=== PATIENT | male | born 1995 | race Caucasian/White ===

== ENCOUNTER 2020-10-11 15:16 | Emergency (ER) | payer SELFPAY ==
[2020-10-11] VITALS (16 sets, daily range): BP systolic 125–158; BP diastolic 82–104; PULSE 93–123; RESP 10–23; O2SAT 93–99
--- NOTE | ~2020-10-11 | XR_ITS ---
EXAMINATION: XR chest 1V portable DATE: 10/11/2020 16:50 INDICATION: Shortness of breath and bronchitis. TECHNIQUE: frontal view of the chest was obtained. COMPARISON: None FINDINGS: The lungs are clear with no focal airspace opacities, pulmonary edema, pleural effusion or pneumothor ax. The cardiomediastinal silhouette is normal. Visualized bones and soft tissues are unremarkable. IMPRESSION: 1. No acute cardiopulmonary disease. Reviewed, dictated and finalized at location A. END OPERATOR
--- NOTE | ~2020-10-11 | CT_ITS ---
EXAMINATION: CTA chest PE protocol DATE: 10/11/2020 17:06 INDICATION: Shortness of breath. Hypoxia. TECHNIQUE: Computed tomography (CT) pulmonary angiogram of the chest was performed with 100 mL Omnipa que-350 intravenous contrast. Additional 3D reconstructions utilizing coronal maximum intensity proje ction (MIP) were performed. The dose-length product was 703.72 mGy-cm. COMPARISON: None FINDINGS: Excellent contrast opacification of the pulmonary arteries. There is mild streak artifact from dense contrast in the superior vena cava and right atrium. Mild scattered respiratory motion artifact which mildly decreases sensitivity and specificity in some of the smaller subsegmental pulmonary arteries. There appear to be subtle central decreased attenuation in a few of the basilar segmental and subseg mental pulmonary arteries in the left lower lobe which appear more likely related to motion and strea k artifact in pulmonary emboli. No definitive pulmonary emboli identified. Diffuse mild bronchial wal l thickening consistent with bronchitis. No pneumonia, pulmonary edema, pleural effusion or pneumotho rax. Heart size is normal. No pericardial effusion. No pathologically enlarged thoracic lymphadenopat hy. Normal residual thymic tissue in the anterior mediastinum. Mild bilateral gynecomastia. Diffuse h epatic steatosis with focal sparing along the gallbladder fossa. Minimal likely physiologic anterior wedging at L1 and multiple mid and lower thoracic vertebral bodies. IMPRESSION: 1. A couple very subtle regions of decreased central attenuation within a few of the segmental and grant bsegmental pulmonary arteries in the left lower lobe which appear more likely related to combination of streak and motion artifact than pulmonary emboli. No definitive pulmonary emboli identified. 2. Diffuse mild bronchial wall thickening consistent with bronchitis or reactive airway disease/asthm a. 3. Diffuse hepatic steatosis. Reviewed, dictated and finalized at location A. T TEAM CLERK IMPRESSION: 1. A couple very subtle regions of decreased central attenuation within a few o f the segmental and subsegmental pulmonary arteries in the left lower lobe whic h appear more likely related to combination of streak and motion artifact than pulmonary emboli. No definitive pulmonary emboli identified. 2. Diffuse mild bronchial wall thickening consistent with bronchitis or reactiv e airway disease/asthma. 3. Diffuse hepatic steatosis.
--- NOTE | 2020-10-11 15:47 | ECG_ITS ---
Measurements Intervals [place] Rate: 108 P: 59 ME: 123 QRS: 49 QRSD: 92 T: 60 QT: 330 QTc: 443 Interpretive Statements SINUS TACHYCARDIA EARLY PRECORDIAL R/S TRANSITION ST ELEVATION IN ANTEROLAT/INF LEADS- PROBABLY EARRY REPOLARIZATION BASELINE ARTIFACT- I, II, III, AVL ABNORMAL ECG Electronically Signed On 10-11-2020 16:24:54 PIPE INSULATOR by Wesley Adams D.O.
--- NOTE | 2020-10-11 15:50 | ED.SOB ---
HPI - SOB/Dyspnea General Chief Complaint: Shortness of Breath/Dyspnea Stated Complaint: sob Time Seen by Provider: 10/11/20 15:18 Source: patient Mode of arrival: ambulatory Limitations: no limitations History of Present Illness HPI Narrative: This patient is a 24 year old male who presents for evaluation of shortness of breath. Patient reports he developed a cough and shortness of breath 1 month ago. He states at that time he went to an urgent care for evaluation. He was told he had wheezing and he was discharged with amoxicillin, albuterol, prednisone for a diagnosis of bronchitis. He reports he developed a rash immediately after taking the amoxicillin but he continued taking it for 5 days. He returned to Urgent care and they changed his antibiotics. He has not been on antibiotics for 2 weeks. He has been using an albuterol nebulizer for his cough and sob. Today he was at home and he states he developed worsening sob. EMS found patient with oxygen saturation of 88% on room air and he had a rash. Patient was given benadryl by EMS . His rash has now resolved. He denies fever, chest pain, sore throat, tongue swelling. Related Data Home Medications Medication Instructions Recorded Confirmed albuterol 90 mcg INHALATION 10/11/20 Allergies Allergy/AdvReac Type Severity Reaction Status Date / Time amoxicillin Allergy Rash Verified 10/11/20 15:18 Penicillins Allergy Rash Verified 10/11/20 15:18 Review of Systems Review of Systems: All systems reviewed & are unremarkable except as noted in HPI and below Constitutional: Constitutional: Denies chills and Denies fever(s) ENT: Denies dysphagia, Denies nasal congestion and Denies sore throat Cardiovascular: Cardiovascular: Denies chest pain Respiratory: Respiratory: Reports cough, Reports dyspnea and Reports wheezing Gastrointestinal: Gastrointestinal: Denies abdominal pain, Denies diarrhea and Denies nausea Allergic/Immunologic: Allergic/Immunologic: Denies lip swelling and Denies tongue swelling PMFSH Past Medical History Medical History (Updated 10/11/20 @ 18:17 by Yenny Pavon MD) Patient denies medical problems Social History Social History (Updated 10/11/20 @ 15:58 by Yenny Pavon MD) Smoking status: Never smoker Exam Narrative: Exam Narrative: GENERAL: Well-appearing, well-nourished, and in no acute distress. HEAD: Normocephalic, atraumatic EYES: PERRLA and EOMI, conjunctiva clear without discharge EARS: TM's clear bilaterally without erythema or dullness THROAT:Mucous membranes moist, Oropharynx normal without erythema, exudate, peritonsillar swelling or fluctuance NECK: Supple, without lymphadenopathy or mass RESPIRATORY: No respiratory distress, Airway patent, Respirations non-labored, Clear to auscultation without rales, rhonchi or wheeze HEART:tachycardic rate and regular rhythm. No murmur heard. Normal peripheral pulses. ABDOMEN: Soft, nontender, nondistended, normal active bowel sounds. No masses. No rebound or guarding, No organomegaly. EXTREMITIES: No edema, normal strength with full range of motion. SKIN: Warm, dry, normal color without rash NEURO: Alert and oriented x3. CN 2-12 grossly intact. No focal deficits. PSYCH: Normal mood and affect. Course Reevaluation(s) Reevaluation #1: PAtient has had no issues while in ER. His lungs are clear. He is 96% on room air. I discussed ct showing bronchitis. I Discussed discharge plan and treatment. Date: 10/11/20 Time: 17:40 Vital Signs Vital signs: Vital Signs Pulse Rate 123 H 10/11/20 15:08 Respiratory Rate 21 H 10/11/20 15:08 Blood Pressure 140/104 H 10/11/20 15:08 Pulse Oximetry 95 10/11/20 15:08 Pulse Rate 93 10/11/20 18:54 Respiratory Rate 15 10/11/20 18:54 Blood Pressure 158/84 H 10/11/20 18:54 Pulse Oximetry 99 10/11/20 18:54 MDM - SOB/Dyspnea Lab Data Attestation: I reviewed the patient's lab results. Result diagrams:
[2020-10-11 16:06] LABS: Alveolar/Arterial O2 Gradient 37.6 mmHg; Base Excess ABG -1.5 mEq/l (+/-2.0); Device ROOM AIR; Fractional Inspired Oxygen 21 %; HCO3 ABG 22.9 mEq/l (22.0-26.0); Modified Allen's Test Pass; Oxygen Saturation ABG 93.4 % (95.0-100.0); Oxyhemoglobin 92.3 % THb (90.0-100.0); PCO2 ABG 37.8 mmHg (35.0-45.0); PO2 ABG 66.9 mmHg (80.0-100.0); PO2 FiO2 Ratio Arterial Blood 3.19 %; Site Drawn RIGHT RADIAL
[2020-10-11] MEDS: SODIUM CHLORIDE 0.9% IV 1,000 ML 999 ML IV CONT (16:11)
[2020-10-11 16:28] LABS: Basophils Percent Auto 0.4 % (0.2-1.2); Eosinophils Absolute Auto 0.3 K/mm3 (0-0.3); Eosinophils Percent Auto 3.4 % (0-4.4); Hematocrit 48.7 % (42.0-52.0); Immature Granulocyte Absolute 0.03 K/mm3 (0.00-0.031); Immature Granulocyte Percent A 0.3 % (0-0.5); Lymphocytes Absolute Auto 1.15 K/mm3 (0.9-3.2); Lymphocytes Percent Auto 12.1 % (18.3-44.2); Mean Corpuscular HGB Conc 34.9 g/dl (32-36); Mean Corpuscular Hemoglobin 31.5 pg (26-34); Mean Corpuscular Volume 90.2 fl (80-100); Mean Platelet Volume 9.2 fl (7.4-10.4); Monocytes Absolute Auto 0.7 K/mm3 (0.1-0.6); Monocytes Percent Auto 6.9 % (2.6-8.5); Neutrophils Absolute Auto 7.3 K/mm3 (1.3-6.7); Neutrophils Percent Auto 76.9 % (45.5-73.1); Platelet Count Result 260 k/mm3 (150-375); Red Cell Distribution Width 12.8 % (11.5-14.5); White Blood Count 9.5 K/mm3 (4.5-10.0)
[2020-10-11 16:38] LABS: Prothrombin Time 13.5 Seconds (11.1-14.7)
[2020-10-11 16:39] LABS: Partial Thromboplastin Time 22.6 SECONDS (22.3-36.8)
[2020-10-11 16:40] LABS: Alanine Aminotransferase 65 U/L (4-50); Albumin Level 4.5 g/dL (3.5-5.1); Alkaline Phosphatase 67 U/L (38-126); Anion Gap 9 mmol/L (8-16); Aspartate Amino Transferase 39 U/L (17-59); Bilirubin,Total 0.7 mg/dL (0.2-1.3); Blood Urea Nitrogen 16 mg/dL (9-20); Carbon Dioxide 29 mmol/L (22-30); Chloride 103 mmol/L (98-107); Estimated CRCL calculation 131 ml/min; Estimated Glomerular Filt Rate > 60; Glucose 114 mg/dL (75-110); Potassium 4.2 mmol/L (3.4-5.0); Sodium 141 mmol/L (137-145)
[2020-10-11 16:41] LABS: D Dimer 0.66 ug/mL (<0.48); Lactic Acid Reflex 1.5 mmol/L (0.7-2.1)
[2020-10-11 16:49] LABS: NT Pro B Type Natriuretic Pept 57 PG/ML (5-100)
[2020-10-11 23:32] LABS: SARS-CoV-2 RNA PCR Negative
== END 2020-10-11 18:56 | disposition home or self-care (01) ==
PROVIDERS: Emergency Provider General Practice
DX: J45.41 Moderate persistent asthma with (acute) exacerbation (principal); Z20.828 Contact with and (suspected) exposure to other viral communicable diseases; R00.0 Tachycardia, unspecified; R94.31 Abnormal electrocardiogram [ECG] [EKG]; K76.0 Fatty (change of) liver, not elsewhere classified
CPT/HCPCS: 36415; 36600; 71045; 71275; 80053; 82805; 83605; 83880; 85025; 85380; 85610; 85730; 87635; 93005; 96360; 99284; C9803; J7030; Q9967; U0003

== ENCOUNTER 2020-10-14 04:51 | Emergency (ER) | payer SELFPAY ==
[2020-10-14 05:53] LABS: Glucose Point of Care 152 (65-105)
--- NOTE | 2020-10-14 05:53 | ED.CPR ---
HPI - CPR General Chief Complaint: Cardiac Arrest/CPR Stated Complaint: CARDIAC ARREST Time Seen by Provider: 10/14/20 05:21 Source: family and EMS Mode of arrival: EMS Limitations: other (cardiac arrest) History of Present Illness HPI narrative: This patient is a 24 year old male who presents in cardiac arrest. Patient was seen at in ER 3 days for shortness of breath and he was diagnosed with bronchitis. His fiance reports he went outside tonight because he was having trouble breathing. They witnessed patient slump over. She states they pulled the patient down the stairs to get him on flat ground and he may have hit is head. She states patient was found to be apneic and pulseless. She states then police arrived and started CPR. She reports during that time he had vomiting. EMS reports patient was found to be PEA on their arrival. They intubated patient and placed an IO in his left leg. His fiance reports he did not get his prescriptions filled that he was prescribed 3 days ago in the ER. complaint: stopped breathing Shock advised: No Initial findings in the field: unresponsive and PEA ROSC in the field: No Associated symptoms: shortness of breath Treatments prior to arrival: intubation Related Data Home Medications Medication Instructions Recorded Confirmed albuterol 90 mcg INHALATION 10/11/20 Allergies Allergy/AdvReac Type Severity Reaction Status Date / Time amoxicillin Allergy Rash Verified 10/11/20 15:18 Penicillins Allergy Rash Verified 10/11/20 15:18 Review of Systems Review of Systems: ROS unobtainable: Yes unobtainable due to endotracheal tube and unobtainable due to medical condition PMFSH Past Medical History Medical History (Updated 10/14/20 @ 07:31 by Yenny Pavon MD) Patient denies medical problems Social History Social History (Updated 10/11/20 @ 15:58 by Yenny Pavon MD) Smoking status: Never smoker Exam Const: General: ill appearing Other: unresponsive HENMT: Other: food in the airway Eyes: Pupils: Dilated pupils and Fixed pupils Resp: Other: intubated Cardio: Other: pulseless GI: GI Palp: Yes Soft to palpation Auscultation: Hypoactive bowel sounds present Neuro: General: patient obtunded (unresponsive) Gait exam (Neuro): Unable to assess gait Extrem: Right upper extremity: cyanosis Course Course Emergency Course: PAtient presented in PEA to ER. EMS placed an ETT but on visualization it was outside vocal cords with. We had to suction patient as he had significant amount of gastric content in his airway. After suctioning , able to intubate with bougie and MAC 5 larygnoscopic. PAtient found to have significant amount of food particles in ETT. At couple moments, we were able to obtain ROSC that would not last more than 5 minutes. Time of 539 am. Patient's mother and fiance were at bedside during the resusciation. MDM - Cardiac Arrest/CPR Lab Data Labs: Lab Results 10/14/20 Range/Units 04:56 POC Capillary Glucose 152 H (65-105) mg/dl Discharge Plan Discharge Clinical Impression: Cardiac arrest, Acute respiratory failure Patient Disposition: Condition: Prescriptions: No Action albuterol 90 mcg/actuation Aerosol 90 mcg INHALATION RF: 0 montelukast [Singulair] 10 mg tablet 10 mg PO DAILY Qty: 14 RF: 0 loratadine [Claritin] 10 mg tablet 10 mg PO DAILY Qty: 14 RF: 0 prednisone 10 mg tablets,dose pack See Rx Instructions .ROUTE .COMPLEX Qty: 21 RF: 0 albuterol sulfate 2.5 mg /3 mL (0.083 %) solution for nebulization 2.5 mg inhalation Q4H PRN (Reason: shortness of breath or wheezing) Qty: 75 RF: 0 Follow-up/Referrals: PHYSICIAN,THEATER PROJECTIONIST [Primary Care Provider] - Quality Bernardo Coma Scale Eyes: No Response Verbal: No Response Motor: No Response [place] Coma Total Score: 3
--- NOTE | 2020-10-14 05:59 | PC.NURSE ---
see code sheet ,[id number] pt arrived and acls protocol was follow, pt time of [id number]
--- NOTE | 2020-10-14 06:28 | PC.NURSE ---
called the cproner @[phone]. spokr to panchito villanueva. he states he will come out see the pt.
--- NOTE | 2020-10-14 08:23 | PC.NURSE ---
PT WAS RELEASED BY TMD TEACHER. CALLED [facility]. PT IS A CANDIDATE. ANTONIETTA WILL CALL MOTHER FOR CONSENT TO DONATE
--- NOTE | 2020-10-14 08:50 | PC.NURSE ---
[facility] CALLED BACK AND STATES THAT PT IS GOING TO BE A DONOR. THEY WILL COME [facility]NE TO THE [facility] TO SUPERVISOR BROADLOOM THE PT.
== END 2020-10-14 08:51 | disposition expired ==
PROVIDERS: Emergency Provider General Practice
DX: I46.9 Cardiac arrest, cause unspecified (principal); J96.00 Acute respiratory failure, unspecified whether with hypoxia or hypercapnia
CPT/HCPCS: 92950; 99285; J0171; J7030